=== PATIENT | female | born 1955 | race Caucasian/White ===

== ENCOUNTER → 2017-12-01 | Outpatient (CLI) | payer OTHER ==
[~2017-12-01] VITALS: Ht 170.2 cm; Wt 84.4 kg
[~2017-12-01] MED LIST: B-COMPLEX-VITA1 EACH PO; BUPRENORPHINE HC2 MG SUBLING; BUTRANS1 EAC1 TRANSDERM; DOXEPIN 25 MG C25 M1 PO; HYDROCODON-ACE1 EAC5 PO; MAGNESIUM500 MG PO; MELATONIN5 M1 PO; PROBIOTIC1 EAC1 PO; SELENIMIN200 MCG PO; SYNTHROID88 MCG PO; VITAMIN D31000 UNIT PO; VITAMIN D5000 UNIT PO; VITAMINC500 PO
--- NOTE | ~2017-12-01 | HPC ---
[facility] [place] [address] PAIN MANAGEMENT CONSULTATION Name: DINAH HULL Room #: REG [facility]..#: [id number] Admission: 12/01/17 Attend Phys: Ana Paula Lewis MD Discharge: Date of : 59 Report #: [id number] THIS REPORT FOR: //name// CC: Ana Paula Ward MD DATE OF SERVICE: 12/01/2017 FOLLOWUP COMPLAINT: "Things are going pretty well, but I think I might be getting a rash from the patch." FOLLOWUP HISTORY: The patient is a 62-year-old female who has been seen in the pain clinic because of chronic pain involving her knees, back, and spine. She has been having problems and difficulty since 2008. She describes her pain as continuous, steady, burning, shooting, cramping, aching, and finds that nonsteroidal anti-inflammatory medications or problematic. She has had some problems with ruptured disk in her spine. Disk problems in the lumbar spine with ruptured disk. She has found doxepin and hydrocodone, medications to be helpful. She states that she continues to stay as active as possible and continues to exercise. She finds it mild stretching continues to be efficacious. As you recall, she moved here from [place]. She would like to continue with use of the Butrans and hydrocodone. MEDICATIONS: Hydrocodone 10/325 one p.o. b.i.d., Butrans patch change weekly, melatonin 5 mg, probiotic, selenium 200 mcg, vitamin D, vitamin C, and doxepin 25 mg at bedtime, levothyroxine 88 mcg. PHYSICAL EXAMINATION: Blood pressure 134/82, pulse 86, respiratory rate 16, room air saturation 97. Height 5 feet 7 inches. Weight 186 pounds. HEENT: atraumatic. Eyes equal, pupils are reactive. NECK: Supple. HEART: Regular rate. ABDOMEN: Nontender complains of pain and discomfort in the thoracic area and back area. IMPRESSION: 1. Chronic pain syndrome treated with Butrans patch and hydrocodone. 2. Degenerative disk disease. 3. Fibromyalgia. 4. Spastic colon. 5. Irritable bowel syndrome. 6. Chronic pain syndrome since 2008. 7. Immunodeficiency. RECOMMENDATIONS: We discussed the treatment options with the patient again. [address] [address] PAIN MANAGEMENT CONSULTATION Name: DIANH HULL [facility] [id number] Admission: 12/01/17 Attend Phys: Ana Paula Lewis MD Discharge: Date of : 59 Report #: [id number] She finds that the Transderm Butrans patch is helpful. She has noticed that she developed a rash in one of the areas where she had placed the patch. She feels overall that things are going reasonably well. She has been able to continue to engage in activities of daily living in the level that she would like. She has had no complications. She feels that the medications are working reasonably well. She keeps her medications in a guarded area. Again, we discussed the risks and benefits of opioid therapy, possible complications of their use, which include tolerance and dependence. Overall, she feels that things are going reasonably well and would like to continue her current medical regimen. She will call us if she has any problems with her medications. We would like to thank you for letting us participate in her care. We hope she continues to improve. <ELECTRONICALLY SIGNED> By: Ana Paula Lewis MD 12/06/17 0837 0 Ana Paula Lewis MD /[facility]
[2017-12-01 09:29] VITALS: BP 134/82
== END ==
LOC: PAIN 06:44
DX: G89.4 Chronic pain syndrome (principal); M51.36 Other intervertebral disc degeneration, lumbar region; K58.8 Other irritable bowel syndrome; M54.9 Dorsalgia, unspecified; M79.7 Fibromyalgia; R25.2 Cramp and spasm; D84.9 Immunodeficiency, unspecified

== ENCOUNTER → 2018-01-05 | Outpatient (CLI) | payer OTHER ==
[~2018-01-05] VITALS: Ht 170.2 cm; Wt 84.4 kg
--- NOTE | ~2018-01-05 | HPC ---
[facility] [place] [address] PAIN MANAGEMENT CONSULTATION Name: DINAH HULL Room #: REG [facility]ath[facility].#: [id number] Admission: 01/05/18 Attend Phys: Ana Paula Lewis MD Discharge: Date of : 59 Report #: [id number] THIS REPORT FOR: //name// CC: Ana Paula Sheehan DATE OF SERVICE: 01/05/2018 FOLLOWUP COMPLAINT: The patches are still irritating my skin. FOLLOWUP HISTORY: The patient is a 62-year-old female who has been seen in the pain clinic. As you recall, she moved here recently to be with her daughter. She finds that her Butrans patches are helpful. She changes them on a weekly basis. Unfortunately, she continues to have some pain and discomfort in the site of the patch from the adhesives. She feels that this might be problematic enough that she needs to think of another treatment course. She denies any bowel or bladder complaints. No problems with confusion. No significant problems with bowel or bladder dysfunction. Continues to write a book. Overall she thinks, things are going reasonably well and rates her pain as a 6/10. As you recall, she has had back surgery and suffers from fibromyalgia. ALLERGIES: 1. NONSTEROIDAL ANTI-INFLAMMATORY medications are problematic. 2. SULFA. 3. ERYTHROMYCIN. MEDICATIONS: Which have been reviewed are vitamin B complex, magnesium 500 mg, vitamin D3, hydrocodone/acetaminophen 10/325 b.i.d., Butrans 1 patch 10 mcg weekly, melatonin 5 mg at bedtime, vitamin D 5000 units, ascorbic acid 1000 mg daily, doxepin 25 mg at bedtime, levothyroxine 88 mcg daily. PHYSICAL EXAMINATION: GENERAL: The patient is a well-developed white female in no apparent distress. Appears her stated age. Alert and oriented x 3. Affect is appropriate. HEENT: Normocephalic, atraumatic with extraocular eye muscles intact. Moist buccal membranes. Nonicteric sclerae. The patient wears glasses. NECK: Without adenopathy or bruits. HEART: Regular rate and rhythm. ABDOMEN: Nontender. MUSCULOSKELETAL: The patient has pain in the back area status post laminectomy as well as thoracic disk ruptures. IMPRESSION: 1. Chronic pain syndrome, treated Butrans patch. The patient has noted some irritation over skin. We [place] [address] PAIN MANAGEMENT CONSULTATION Name: DINAH HULL CASSIE Room #: REG [facility]#: [id number] Admission: 01/05/18 Attend Phys: Ana Paula Lewis MD Discharge: Date of : 59 Report #: [id number] 2. Degenerative disk disease. 3. Fibromyalgia. 4. History of back surgeries. 5. Spastic colon. 6. Irritable bowel syndrome. 7. Immunodeficiency. 8. Chronic pain syndrome since 2008. RECOMMENDATIONS: We discussed treatment options with the patient. The patient does have areas of skin irritation where the Butrans patch has been placed. Oftentimes, the glue associated with these can be irritating to some folks skin. At this juncture, we will try buprenorphine 2 mg sublingual t.i.d. as well as continued use of hydrocodone 10/325 one p.o. b.i.d. as needed. The patient will call us if she has any problems with her medications. We would like to thank you for letting us participate in her care. We hope she continues to improve. <ELECTRONICALLY SIGNED> By: Ana Paula Lewis MD 02/07/18 1424 [id number] Ana Paula Lewis MD /nt
[2018-01-05 11:06] VITALS: BP 128/76
== END ==
LOC: PAIN 06:59
DX: R21 Rash and other nonspecific skin eruption (principal); G89.29 Other chronic pain; M19.90 Unspecified osteoarthritis, unspecified site; M79.7 Fibromyalgia; K58.9 Irritable bowel syndrome, unspecified; D84.9 Immunodeficiency, unspecified; Z88.6 Allergy status to analgesic agent; Z88.2 Allergy status to sulfonamides; Z88.1 Allergy status to other antibiotic agents

== ENCOUNTER → 2018-02-02 | Outpatient (CLI) | payer OTHER ==
[~2018-02-02] VITALS: Ht 170.2 cm; Wt 84.4 kg
--- NOTE | ~2018-02-02 | HPC ---
[facility] [place] [address] [place] [address] PAIN MANAGEMENT CONSULTATION Name: DINAH HULL Room #: REG [facility] Nathaly.#: [id number] Admission: 02/02/18 Attend Phys: Ana Paula Lewis MD Discharge: Date of : 59 Report #: [id number] THIS REPORT FOR: //name// CC: Ana Paula Ward MD DATE OF SERVICE: 02/02/2018 FOLLOWUP COMPLAINT: Here for renewal of medications. FOLLOWUP HISTORY: The patient is a 62-year-old female who has been seen in the pain clinic because of chronic pain. She moved here from [facility]. She is here to be with her daughter. She used to be in the . She finds that she continues to have pain and discomfort, which involves her back. She has problems with fibromyalgia and has been experiencing chronic back pain since 2008. She did have some surgery and continues to have some failed back pain syndrome symptomatology. She finds that her current medications of buprenorphine 2 tablets t.i.d. have been helpful. She is not having any side effects. She feels actually that these medications have been working better than the Butrans patch. She would like to continue with this medication. She continues to have some generalized pain in the back because of the history of surgery. She also has some generalized global pain as a result of fibromyalgia. Rates her pain as a 6/10 today. She does note that the pain has been worse because of the weather, which has been cold and continues to wax and wane. Lifting activities can be problematic as well. She does try to exercise and use of heat can be beneficial. She denies any changes with her bowel or bladder function. She still feels as though her mind is clear with her current medication. 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 ALLERGIES: 1. NONSTEROIDAL ANTI-INFLAMMATORY MEDICATIONS ARE PROBLEMATIC. 2. SULFA. 3. ERYTHROMYCIN. CURRENT MEDICATIONS: Reviewed and they include vitamin B complex, magnesium 500 mg, vitamin D3, hydrocodone/acetaminophen 10/325 one p.o. b.i.d., Butrans was used, but has been stopped secondary to skin irritation from the patch, melatonin 5 mg at bedtime, vitamin D 5000 units, ascorbic acid 1000 mg, doxepin 25 mg at bedtime, levothyroxine 88 mcg daily. PHYSICAL EXAMINATION: GENERAL: The patient is a well-developed white female, in no apparent distress. She appears her stated age. She is alert and oriented x 3. Her affect is appropriate. HEENT: Normocephalic, atraumatic. Extraocular eye muscles intact. [address] [address] PAIN MANAGEMENT CONSULTATION Name: DINAH HULL Room #: REG [facility]#: [id number] Admission: 02/02/18 Attend Phys: Ana Paula Lewis MD Discharge: Date of : 59 Report #: [id number] buccal membranes. Normal hearing. Nonicteric sclerae. The patient continues to wear glasses. NECK: Without adenopathy or bruits. EXTREMITIES: Upper extremities judged to be 5/5 with the muscle strength without neurological compromise. There is symmetry of the upper extremities. HEART: Regular rate. ABDOMEN: Nontender. MUSCULOSKELETAL: The patient does have pain in the lower portion of her back, status post laminectomy as well as some thoracic disk rupture history. IMPRESSION: 1. Chronic pain involving the low back area. The patient has noted improvement in her pain with using buprenorphine 2 tablets 1 p.o. b.i.d., sublingual. States that they have a bad taste, but overall after a few minutes that portion has passed and the pain medicine is still beneficial. 2. Degenerative disk disease. 3. Fibromyalgia. 4. History of back surgeries. 5. Spastic colon. 6. Irritable bowel syndrome. 7. Immunodeficiency. 8. Chronic pain syndrome since 2008. RECOMMENDATIONS: We will continue with the buprenorphine 2 mg tablets one sublingual t.i.d. The patient finds that this is working reasonably well. Overall, she feels that it may be working better than the Butrans patch. She has had no complications. It is not affecting her mental abilities. No problems with constipation. The patient will continue with this current medication. She will call us if she has any problems with her medications. We would like to thank you for letting us participate in her care. We hope she continues to improve. <ELECTRONICALLY SIGNED> By: Ana Paula Lewis MD 02/23/18 0823 [id number] Ana Paula Lewis MD /nt
[2018-02-02 09:47] VITALS: BP 119/78
== END ==
LOC: PAIN 07:05
DX: G89.29 Other chronic pain (principal); M54.5 Low back pain; M51.36 Other intervertebral disc degeneration, lumbar region; G89.4 Chronic pain syndrome; K58.8 Other irritable bowel syndrome; M79.7 Fibromyalgia

== ENCOUNTER → 2018-03-09 | Outpatient (CLI) | payer OTHER ==
[~2018-03-09] VITALS: Ht 170.2 cm; Wt 83.6 kg
--- NOTE | ~2018-03-09 | HPC ---
[facility] [place] [address] PAIN MANAGEMENT CONSULTATION Name: DINAH HULL Room #: REG [facility].#: [id number] Admission: 03/09/18 Attend Phys: Ana Paula Lewis MD Discharge: Date of : 59 Report #: [id number] THIS REPORT FOR: //name// CC: Ana Paula Ward MD DATE OF SERVICE: 03/09/2018 FOLLOWUP COMPLAINT: Here for medications, things are going reasonably well. FOLLOWUP HISTORY: The patient is a 62-year-old female who has been followed in the pain clinic because of chronic pain involving her low back. As you recall, she has had chronic back pain. She is status post surgery with failed back symptomatology. Continues to have pain and discomfort, which is problematic. She has found buprenorphine 2 mg tablets 1 p.o. t.i.d. helpful. This has been beneficial. She is not having the problem that she did initially with use of fentanyl or the buprenorphine patches. They did cause some problem with skin irritation. Feels overall that things are going relatively nicely. Thus, has noted some increased discomfort today. The weather is changing quite drastically. There is possibility of a tornadic action today. She feels that change in pressures are exacerbating her pain and discomfort. Overall, she feels that things are going reasonably well. Medication is helpful. She is aware of the complaints in the media regarding use of opioid medications. She states that these medications are causing any problems with her bowel or bladder function. She finds that her mentation is clear. 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 ALLERGIES: 1. NONSTEROIDAL ANTI-INFLAMMATORY MEDICATIONS ARE PROBLEMATIC. 2. SULFA. 3. ERYTHROMYCIN. MEDICATIONS: Reviewed include vitamin B complex, magnesium 500 mg, vitamin D3, hydrocodone ____ 10/325 one p.o. b.i.d., decrease or discontinue use of Butrans patch for buprenorphine 2 mg t.i.d., vitamin D 5000 units, ascorbic acid 1000 mg, doxepin 25 mg at bedtime, and levothyroxine 88 mcg daily. PHYSICAL EXAMINATION: GENERAL: The patient is a well-developed white female. She appears to be in no distress. Orientation, she is alert and oriented x 3. Affect, the patient's affect is appropriate. Speech is fluent. HEENT: Normocephalic, atraumatic. Extraocular eye muscles intact. Sclerae nonicteric. Moist mucous membranes, continues to wear glasses. NECK: Without adenopathy or bruits. CHEST: Clear to auscultation without respiratory distress. [address] [address] PAIN MANAGEMENT CONSULTATION Name: DINAH HULL CASSIE Room #: REG [facility]#: [id number] Admission: 03/09/18 Attend Phys: Ana Paula Lewis MD Discharge: Date of : 59 Report #: [id number] ABDOMEN: Nontender. MUSCULOSKELETAL: Upper extremity is judged to be 5/5 with normal strength in the musculature with symmetry and no neurologic changes. Lower extremities is judged to be 5/5. The patient has some post-laminectomy discomfort. IMPRESSION: 1. Chronic pain involving the low back area. The patient has continued to improve with use of buprenorphine 2 mg 1 p.o. b.i.d., sublingual. 2. Degenerative disk disease, status post left laminectomy. 3. Fibromyalgia. 4. History of irritable bowel syndrome. 5. Spastic colon. 6. Immunodeficiency. 7. Chronic pain since 2008. RECOMMENDATIONS: We discussed treatment options with the patient. Overall, things are going reasonably well. She feels that the medication is working reasonably well. She does not have any problems. She has been feeling pretty good. Did note some increased pain and discomfort because of the change in the weather, which has occurred in the last 24 hours. She would like to continue with her medication. She keeps it in a guarded area. It enables her to engage in activities of daily living, she would not be able to without it. Start causing any problems with fogging her mind. 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 We would like to thank you for letting us participate in her care. We hope she continues to improve. By: [id number] Ana Paula Lewis MD /kerline
[2018-03-09 10:27] VITALS: BP 122/75
== END ==
LOC: PAIN 07:05
DX: G89.29 Other chronic pain (principal); M54.5 Low back pain; M96.1 Postlaminectomy syndrome, not elsewhere classified; M79.7 Fibromyalgia; K58.9 Irritable bowel syndrome, unspecified; D84.9 Immunodeficiency, unspecified; M19.90 Unspecified osteoarthritis, unspecified site; Z88.2 Allergy status to sulfonamides; Z88.1 Allergy status to other antibiotic agents

== ENCOUNTER → 2018-04-06 | Outpatient (CLI) | payer OTHER ==
[~2018-04-06] VITALS: Ht 170.2 cm; Wt 83.5 kg
--- NOTE | ~2018-04-06 | HPC ---
[facility] [place] [address] PAIN MANAGEMENT CONSULTATION Name: DINAH HULL [id number] Admission: 04/06/18 Attend Phys: Ana Paula Lewis MD Discharge: Date of : 59 Report #: [id number] THIS REPORT FOR: //name// CC: Ana Paula Ward MD DATE OF SERVICE: 04/06/2018 FOLLOWUP COMPLAINT: Things are going reasonably well. FOLLOWUP HISTORY: The patient is a 62-year-old female who has been followed in the Pain Clinic. As you recall, she has moved here from [place]. She finds that her current medications of buprenorphine 2 mg t.i.d. as well as hydrocodone 10/325 one p.o. b.i.d. are helpful with her pain. 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 Continues to have pain and discomfort in the low back area. Feels that the medications are working satisfactorily. Does not have any problems with bowel or bladder dysfunction. Keeps her medications in a guarded area. Has been watching the conversation in the media regarding use of opioid medications. She feels that her medications are helpful. They enable her to engage in activities of daily living, she would not be able to without their use. She is not having any problems with mentation. She feels that her thoughts are clear. 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 ALLERGIES: 1. NONSTEROIDAL ANTI-INFLAMMATORY medications are problematic. 2. SULFA. 3. ERYTHROMYCIN. CURRENT MEDICATIONS: Vitamin B complex, magnesium 500 mg, vitamin D, hydrocodone/acetaminophen 10/325 one p.o. b.i.d., Butrans discontinued secondary to irritation of skin and the patient is using buprenorphine 2 mg 1 p.o. t.i.d. Melatonin 5 mg at bedtime, vitamin D 5000 units, ascorbic acid 1000 mg, doxepin 25 mg at bedtime, and levothyroxine 88.8 mcg daily. PHYSICAL EXAMINATION: GENERAL: The patient is a well-developed, well-nourished white female. She appears her stated age. She is in no distress. She is alert and oriented x 3. Affect is appropriate. HEENT: Normocephalic, atraumatic. Extraocular eye muscles intact. Sclerae nonicteric hearing within normal limits. Mucous membranes are moist. NECK: Without adenopathy or bruits. CHEST: Clear to auscultation without rhonchi or rales. EXTREMITIES: Upper extremity strength is judged to be 5/5 for the major muscle groups without compromise. Symmetry is noted. ABDOMEN: [place] [address] PAIN MANAGEMENT CONSULTATION Name: KURTISDINAH CASSIE Room #: REG [facility]#: [id number] Admission: 04/06/18 Attend Phys: Ana Paula Lewis MD Discharge: Date of : 59 Report #: [id number] MUSCULOSKELETAL: Without significant scoliosis, kyphosis or lordosis. She does complain of pain and discomfort in her low back, status post laminectomy as well as some thoracic disk history and some upper thoracic area discomfort. IMPRESSION: Chronic pain involving the low back. The patient will continue with buprenorphine 2 tablets t.i.d. She will also continue with hydrocodone. She will call us if she has any problems with her medications. We would like to thank you for letting us participate in her care. PAIN CLINIC ASSESSMENT: 1. History of osteoarthritis. The patient is not being treated for osteoarthritis. 2. Height 5 feet 7 inches, weight 184 pounds, BMI is 28.8. 3. Vital signs: Blood pressure 116/69, pulse 77, respiratory rate 14, room air saturation 99%, 4. Pain intensity 10. 5. Fall risk. The patient has not fallen in the last 3 months. 6. Blood thinner. The patient is not on a blood thinner. 7. History of hypertension. The patient is not being treated for hypertension. 8. Opioid therapy greater than 6 weeks. The patient is on a contract with the Pain Clinic that she gets her medication from one source. 9. Risk assessment tool, 0 out of 3, which is low for opioid use. 10. Functional assessment tool. 11. Recreational drug use. The patient denies use of recreational drugs. 12. Tobacco: The patient denies use of alcohol or tobacco. 13. Alcohol patient denies, other than occasional use of alcoholic beverages. IMPRESSION: 1. Chronic pain involving the low back. The patient continues to note improvement with use of buprenorphine 2 tablets p.o. t.i.d. 2. Degenerative disk disease. 3. Fibromyalgia. 4. History of back surgeries with chronic pain. 5. Spastic colon. 6. Irritable bowel syndrome. 7. Immunodeficiency. 8. Chronic pain syndrome since 2008. RECOMMENDATIONS: We will continue with her current medications. A script for her medications have been rewritten. [place] one p.o. b.i.d., total of 60 tablets will be administered and dispensed. Buprenorphine 2 mg tabs sublingual t.i.d. have been written. The patient will call us if she has any problem with [address] [address] PAIN MANAGEMENT CONSULTATION Name: DINAH HULL Room #: REG [facility]#: [id number] Admission: 04/06/18 Attend Phys: Ana Paula Lewis MD Discharge: Date of : 59 Report #: [id number] her medications. We would like to thank you for letting us participate in her care. We hope she continues to improve. <ELECTRONICALLY SIGNED> By: Ana Paula Lewis MD 04/10/18 1030 [id number] Ana Paula Lewis MD /nt
[2018-04-06 10:00] VITALS: BP 116/69
== END ==
LOC: PAIN 07:33
DX: M51.36 Other intervertebral disc degeneration, lumbar region (principal); M54.5 Low back pain; M79.7 Fibromyalgia; G89.29 Other chronic pain; K58.9 Irritable bowel syndrome, unspecified; D84.9 Immunodeficiency, unspecified; I10 Essential (primary) hypertension